=== PATIENT | female | born 2000 | race African-American/Black ===

== ENCOUNTER 2024-01-29 12:44 | Emergency (ER) | payer BC ==
[~2024-01-29] VITALS: Ht 165.1 cm; Wt 90.0 kg
[2024-01-29] MEDS ORDERED: ONDANSETRON HCL INJ 2MG/ML 2ML 2 MG/ML VIAL ONE (13:30)
[2024-01-29] MEDS: SODIUM CHLORIDE 0.9% 1000ML 1,000 ML IV ONE (13:38)
[2024-01-29] MEDS: KETOROLAC TROMETHAMINE 30 MG/ML VIAL IV STA (13:38)
[2024-01-29] MEDS ORDERED: IOPAMIDOL 370 MG/ML 100 ML INFUS..BTL INJ ONE (13:57)
[2024-01-29] MEDS: ONDANSETRON HCL INJ 2MG/ML 2ML 2 MG/ML VIAL IV STA (13:59)
[2024-01-29 15:23] VITALS: PULSE 95; RESP 16; TEMP 98.7; O2SAT 99
[2024-01-29] MEDS ORDERED: DOXYCYCLINE HY100 MG PO (15:31)
[2024-01-29] MEDS ORDERED: METRONIDAZOLE500 MG PO (15:32)
[2024-01-29] MEDS ORDERED: DIFLUCAN100 MG PO (15:33)
[2024-01-29] MEDS: CEFTRIAXONE 500 MG VIAL IM ONE (15:46)
== END 2024-01-29 16:00 | disposition home or self-care (01) ==
LOC: FSED 12:49
DX: R10.30 Lower abdominal pain, unspecified (principal); N73.9 Female pelvic inflammatory disease, unspecified
CPT/HCPCS: 74177; 80053; 81003; 81025; 85025; 87210; 96372; 96374; 96375; 99284; J0696; J1885; J2405; J7030; Q9967